=== PATIENT | male | born 1990 ===

== ENCOUNTER 2024-04-22 17:08 | Emergency (ER) | payer BC, SELFPAY ==
[2024-04-22 17:10] VITALS: BP 105/62; PULSE 68; RESP 16; TEMP 37; O2SAT 98
--- NOTE | 2024-04-22 17:18 | ED.GENADUL_ITS ---
Discharge Plan Disposition Patient Disposition: Home Condition: Stable Discharge Details Clinical Impression: Perforation of right tympanic membrane Primary Care Provider: Avani,Local ED Provider: Waldemar [place] Home Meds and New Rx's Prescriptions: New ofloxacin 0.3 % drops 5 drp otic (ear) BID 5 Days Qty: 5 0RF Discharge Instructions Instructions: Ofloxacin (Otic), Ruptured Eardrum ED Additional Instructions: You were seen in the emergency department for your perforation of your right tympanic membrane, this is a common injury post water exposure and barotrauma. There is no sign of major infection, you need to monitor your condition closely, do not get water inside your ear, I am prescribing you ofloxacin otic drops to use 5 drops in the affected ear 2 times per day for 5 days. You need to take Tylenol and ibuprofen for any pain as needed, follow-up with your primary care provider in about 4 weeks time to ensure routine healing of your tympanic membrane, you may need audiology testing at that time if you continue to have hearing deficits, have also provided the office contact information for ENT should you experience any acute complications. Please return to the ER for any drainage of pus from the ear, severe pain and redness behind the ear, fever, headache, dizziness or facial paralysis. Referrals: [facility] [Provider Group] Discharge Data Discharge Physician: Waldemar [place] [facility] General Date/Time Provider Initiated Documentation: 04/22/24 17:13 . HPI Narrative: 33 year-old male presents to ED today by POV/ambulating with a chief complaint of R ear ache, starting today after getting water in his ear yesterday- tried OTC ear drops with increased pain and reporting mild muffled hearing. Quality described as generalized ear ache, no radiation to fever, cough, shortness of breath, chest pain, visual changes, loss of total hearing, pulsatile tinnitus. Severity is described as mild. Palliating factors include OTC ear drops with worsening. Provoking factors include nothing specific. Patient not anticoagulated. Related Data Home Medications ?Medication ?Instructions ?Recorded ?Confirmed ofloxacin 0.3 % ear drops 5 drp otic (ear) BID TM 04/22/24 perforation 5 days #5 mL Previous Rx's ?Medication ?Instructions ?Recorded ofloxacin 0.3 % ear drops 5 drp otic (ear) BID TM 04/22/24 perforation 5 days #5 mL Allergies Allergy/AdvReac Type Severity Reaction Status Date / Time No Known Allergies Allergy Unverified 04/22/24 17:12 General Stated Complaint: EarProblem CIELO: 4 Review of Systems All systems reviewed & are unremarkable except as noted in HPI and below Exam Narrative Exam Narrative: GENERAL APPEARANCE: Well-nourished, non-toxic, awake and alert, atraumatic, no acute distress. SKIN: Warm, pink, dry, intact, without rashes/lesions/ulcerations. HEAD: Normocephalic, atraumatic, normal hair distribution for gender/age. EYES: Normal conjunctiva, no exudates on lids/lashes. ENT: Nares patent, no circumoral cyanosis, no facial swelling, R EAR: no mastoid tenderness on R, R TM perforation without hematoma purulent material seen, mild hearing loss with whisper test, no discharge of CSF or pus, appears to be about ~50% perforation, no facial palsy NECK: Supple, trachea midline, painless cervical ROM. LUNGS/CHEST: Non-labored respirations, normal A/P diameter, symmetrical expansion, no chest wall deformity HEART (CV/PV): No peripheral edema, no JVD. ABDOMEN: Soft, non-distended, no guarding. MSK: Normal ROM, no swelling/deformity to bilateral UEs or LEs, moving all extremities without weakness, no cyanosis, spine midline without tenderness, normal curvature. NEURO: Mental Status AAOx4 - alert to person, place, time, events No facial droop, no forehead involvement. Motor: No focal weakness - strength 5/5 in bilateral UEs and LEs, proximal and distal, symmetric. Sensory: sensation intact to light touch globally. Gait normal: patient ambulated without ataxia into ED room. PSYCH: euthymic, cooperative, pleasant, appropriate speech Course Vital Signs Vital signs: Vital Signs Temperature 37.0 C 04/22/24 17:10 Pulse 68 04/22/24 17:10 Respiratory Rate 16 04/22/24 17:10 Blood Pressure 105/62 04/22/24 17:10 Pulse Oximetry 98 04/22/24 17:10 Temperature 37.0 C 04/22/24 17:10 Temperature Source Temporal Artery Scan 04/22/24 17:10 Pulse 68 04/22/24 17:10 Respiratory Rate 16 04/22/24 17:10 Blood Pressure 105/62 04/22/24 17:10 Pulse Oximetry 98 04/22/24 17:10 Pain Level 7 04/22/24 17:10 Medical Decision Making This dictation utilizes [id number] dictation software and may contain unedited grammatical errors. 33 year-old male presents to ED today by POV/ambulating with a chief complaint of R ear ache, starting today after getting water in his ear yesterday- tried OTC ear drops with increased pain and reporting mild muffled hearing. Quality described as generalized ear ache, no radiation to fever, cough, shortness of breath, chest pain, visual changes, loss of total hearing, pulsatile tinnitus. Severity is described as mild. Palliating factors include OTC ear drops with worsening. Provoking factors include nothing specific. Patients' medical history: negative, otherwise healthy. Family and social history: noncontributory. Pertinent exam findings / vital signs include R EAR: no mastoid tenderness on R, R TM perforation without hematoma purulent material seen, mild hearing loss with whisper test, no discharge of CSF or pus, appears to be about ~50% perforation, no facial palsy. Differential / pathologies of concern include AOM, TM Perforation, OE. Diagnostic studies of: -None. Interventions of: -Ofloxacin drops Rx. ED Course/Assessment/Plan: 33-year-old male was swimming yesterday, has earache today with some muffled hearing, has about a 50% perforation of his right TM without hematoma or purulent material seen, no mastoid tenderness, plan to treat with ofloxacin drops for 5 days, recommend follow-up with PCP in about 4 weeks to ensure routine healing of the tympanic membrane, advised to stay away from water, no swimming, provided office contact information for ENT should his hearing loss worsen or he have no improvement. Findings not consistent with necrotizing otitis externa, mastoiditis. Disposition of perforation of right tympanic membrane. Patient verbalized understanding of the plan and return to ED criteria and engaged in shared decision making. Medical Records Medical records reviewed: Yes I reviewed the patient's medical records. Quality:SDOH Health Related Social Needs: No Data to Display PFSH All Active Problems (Updated 04/22/24 @ 17:34 by ELMER Connor) Perforation of right tympanic membrane (Acute) Social History Smoking risk assessment performed?: No
[2024-04-22 17:37] VITALS: BP 105/62; PULSE 68; RESP 16; TEMP 37; O2SAT 98
== END 2024-04-22 17:35 | disposition home or self-care (01) ==
LOC: ER 20:03
PROVIDERS: Emergency Provider Physician Assistant
DX: H72.91 Unspecified perforation of tympanic membrane, right ear (principal)
CPT/HCPCS: 99283